=== PATIENT | male | born 2000 | race African-American/Black ===

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

== ENCOUNTER 2019-09-26 08:27 | Emergency (ER) | payer OTHER ==
[2019-09-26 08:34] VITALS: BP 147/85; PULSE 90; TEMP 97.9; BMI 22.7
--- NOTE | 2019-09-26 09:06 | PDOC ---
History of Present Illness - General Chief Complaint: Pain Stated Complaint: RT LEG STIFFNESS Time Seen by Provider: 09/26/19 08:43 History Source: Patient - History of Present Illness Occurred: reports: other Lower Extremity Pain Location: right: knee Past History - Past Medical History Allergies/Adverse Reactions: Allergies Allergy/AdvReac Type Severity Reaction Status Date / Time No Known Drug Allergies Allergy Verified 09/26/19 08:34 NUTS Allergy Swelling Uncoded 09/26/19 08:34 Home Medications: Ambulatory Orders Aripiprazole [Abilify] 5 mg PO DAILY 09/26/19 COPD: No Psychiatric Problems: Yes - Immunization History Immunization Up to Date: Yes - Psycho Social/Smoking Cessation Hx Smoking History: Former smoker Have you smoked in the past 12 months: No If you are a former smoker, when did you quit?: 09/19/19 Information on smoking cessation initiated: Yes Hx Alcohol Use: No Drug/Substance Use Hx: No Review of Systems - Review of Systems Constitutional: No: Chills, Fever Musculoskeletal: Yes: Joint Pain. No: Joint Swelling *Physical Exam - Vital Signs Last Vital Signs Temp Pulse Resp BP Pulse Ox 97.9 F 90 18 147/85 100 09/26/19 08:31 09/26/19 08:31 09/26/19 08:31 09/26/19 08:31 09/26/19 08:31 - Physical Exam General Appearance: Yes: Appropriately Dressed. No: Apparent Distress HEENT: positive: Normal Voice Neck: positive: Supple Respiratory/Chest: negative: Respiratory Distress Extremity: positive: Normal Inspection, Normal Range of Motion. negative: Tender Integumentary: positive: Dry, Warm Neurologic: positive: Fully Oriented, Alert, Normal Mood/Affect Medical Decision Making - Medical Decision Making 09/26/19 09:03 19-year-old male, presents with chronic right knee pain. Patient states he has had intermittent "tightening" of his right knee that affects how he walks for the past several months. No pain currently. For unclear reasons has never seeked medical evaluation. States he is here today because pain continues. No trauma. Does not play any sports. see exam Chronic R knee pain No trauma Does not play sports No findings on exam to explain sxs Dc w/ ortho f/u for further eval -OTC meds prn pain 09/26/19 09:05 Discharge - Discharge Information Problems reviewed: Yes Clinical Impression/Diagnosis: Knee pain Qualifiers: Chronicity: acute Laterality: right Qualified Code(s): M25.561 - Pain in right knee Condition: Good Disposition: HOME - Follow up/Referral Referrals: Saeid Chavez MD [Primary Care Provider] - Jerzy Ames MD [Staff Physician] - - Patient Discharge Instructions Patient Printed Discharge Instructions: DI for Knee Pain Additional Instructions: The cause of your knee pain is unclear at this time but you will need further evaluation by an orthopedic doctor. Please call Dr. Ames at number given to make an appointment - Post Discharge Activity
== END 2019-09-26 09:10 | disposition home or self-care (01) ==
LOC: JERFT 08:27
DX: M79.604 Pain in right leg (principal); Z91.010 Allergy to peanuts; Z87.891 Personal history of nicotine dependence; F99 Mental disorder, not otherwise specified; G89.29 Other chronic pain
CPT/HCPCS: 99281-25